=== PATIENT | male | born 1955 | race Caucasian/White ===

== ENCOUNTER → 2017-08-19 | Outpatient (CLI) | payer MEDICAID | LOC: FIMAGING 09:45 | PROVIDERS: ATTEND Internal Medicine | DX: K76.0 Fatty (change of) liver, not elsewhere classified (principal); K80.20 Calculus of gallbladder without cholecystitis without obstruction; B18.2 Chronic viral hepatitis C ==

== ENCOUNTER 2018-01-23 14:47 | Emergency (ER) | payer MEDICAID ==
--- NOTE | 2018-01-23 15:12 | EDPHY ---
H & P Stated Complaint: LLQ pain Time Seen by Provider: 01/23/18 15:11 - Personal History Current Tetanus/Diphtheria Vaccine: Yes Current Tetanus Diphtheria and Acellular Pertussis (TDAP): Yes - Medical/Surgical History Hx Asthma: No Hx Chronic Respiratory Disease: No Hx Diabetes: No Hx Cardiac Disease: No Hx Renal Disease: No Hx Cirrhosis: No Hx Alcoholism: No Hx HIV/AIDS: No Hx Splenectomy or Spleen Trauma: No Other PMH: HTN, HEP C, gout, - Social History Smoking Status: Never smoked Constitutional: Initial Vital Signs Temperature (C) 36.4 C 01/23/18 15:03 Heart Rate 67 01/23/18 15:03 Respiratory Rate 18 01/23/18 15:03 Blood Pressure 170/79 H 01/23/18 15:03 O2 Sat (%) 92 01/23/18 15:03 O2 Delivery Mode Room Air Allergies/Adverse Reactions: No Known Allergies Allergy (Unverified 01/23/18 15:00) Home Medications: Medication Instructions Recorded Ibuprofen [Motrin] 800 mg PO Q8 #20 tab 01/23/18 Indomethacin 01/23/18 Lisinopril-Hctz 10-12.5 mg Tab 01/23/18 Methadone HCl 01/23/18 Medical Decision Making - Diagnostics Imaging Results: Imaging Impressions Abdomen/Pelvis CT 01/23/18 15:25 Impression: 1. Moderate splenomegaly. 2. Moderate constipation. 3. Cholelithiasis visible on comparison ultrasound from [address] 4. Geographic sclerotic abnormality isolated to the left iliac bone. 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 Primary bone neoplasm or bone metastases are less likely given the absence of aggressive features. The lesion is amenable to CT-guided core biopsy. Attention: This examination does not use radiographic contrast, and as such, provides only a limited evaluation of the abdomen, pelvis, and retroperitoneum. If there is further clinical suspicion for pathological conditions, a complete CT evaluation of the abdomen and pelvis utilizing intravenous, oral, and rectal contrast should be considered. Imaging: Discussed imaging studies w/ physically impaired teacher Radiologist ED Course/Re-evaluation: CHIEF COMPLAINT: Left lower quadrant pain HISTORY OF PRESENT ILLNESS: This patient is a 62 year old male complaining of left lower quadrant abdominal pain. This began suddenly this morning while he was shovelling snow. He did not feel any pulled muscle or hernia sensation. The patient noted some left flank pain while driving from home to the emergency department. He denies history of kidney stones. He does have history of asymptomatic cholelithiasis, diagnosed by CT. He denies nausea, fever, vomiting, diarrhea, melena, hematochezia, or other associated symptoms. Of note, the patient is currently undergoing Hep C protocol. REVIEW OF SYSTEMS: A 10 point review of systems was performed and is negative with the exception of the elements mentioned in the history of present illness. PHYSICAL EXAM: HR, BP, O2 Sat, RR. Temp noted General Appearance: Alert, well hydrated, appropriate, and non-toxic appearing. Head: Atraumatic without scalp tenderness or obvious injury Eyes: Pupils equal, round, reactive to light and accommodation, EOMI, no trauma , no injection. Ears: Clear bilaterally, no perforation, normal landmarks Nose: Atraumatic, no rhinorrhea, clear. Throat: There is no erythema or exudates, no lesions, normal tonsils, mucus membranes moist. Neck: Supple, 2+ carotid upstroke, nontender, no lymphadenopathy. Respiratory: No retractions, no distress, no wheezes, and no accessory muscle use. Lungs are clear to auscultation bilaterally. Cardiovascular: Regular rate and rhythm, no murmurs, rubs, or gallops. Bilateral carotid, radial, dorsalis pedis, and posterior tibial pulses intact. Good capillary refill all extremities. Gastrointestinal: Abdomen is soft, nontender, non-distended, no masses, no rebound, no guarding, no peritoneal signs. Musculoskeletal: Normal active ROM of all extremities, atraumatic. Neurological: Alert, appropriate, and interactive. The patient has normal DTRs and non-focal cranial nerves, motor, sensory, and cerebellar exam. Skin: No rashes, good turgor, no nodules on palpation. Past medical history: Hypertension, Gout, Hepatitis C Past surgical history: Noncontributory Family history: Noncontributory Social history: Lives in [place]. . Self-employed. DIFFERENTIAL DIAGNOSIS: The differential diagnosis for the patient's abdominal pain included but was not limited to musculoskeletal pain, appendicitis, cholecystitis, hernias, testicular torsion, gastritis, and urinary tract infection. MEDICAL DECISION [id number] y/o male presents with left lower quadrant abdominal pain. Plan for CT abdomen/pelvis to r/o kidney stones or other acute processes. Plan for labs including CBC, UA, chemistries. Plan to administer 1L IV NS. Laboratory studies largely unremarkable. 16:[address] Hall, radiologist. CT negative for kidney stone. Incidental bone lesion noted. Recommended follow up CT-guided core biopsy. Workup today is unremarkable. The patient's pain is likely musculoskeletal in origin. Results discussed with the patient. He will follow up with his primary care provider regarding this and his incidental iliac lesion. Return precaution discussed. He is comfortable with this plan. - Data Points Laboratory Results: Laboratory Results 01/23/18 15:10 01/23/18 15:10 01/23/18 01/23/18 15:10 15:10 WBC 6.32 10^3/uL 10^3/uL (3.80-9.50) RBC 6.18 10^6/uL 10^6/uL (4.40-6.38) Hgb 18.0 g/dL H g/dL (13.7-17.5) Hct 51.6 % H % (40.0-51.0) MCV 83.5 fL fL (81.5-99.8) MCH 29.1 pg pg (27.9-34.1) MCHC 34.9 g/dL g/dL (32.4-36.7) RDW 13.4 % % (11.5-15.2) Plt Count 76 10^3/uL L 10^3/uL (150-400) MPV 10.8 fL fL (8.7-11.7) Neut % (Auto) 76.1 % H % (39.3-74.2) Lymph % (Auto) 16.3 % % (15.0-45.0) [place] % (Auto) 5.5 % % (4.5-13.0) Eos % (Auto) 1.3 % % (0.6-7.6) Baso % (Auto) 0.3 % % (0.3-1.7) Nucleat RBC Rel Count 0.0 % % (0.0-0.2) Absolute Neuts (auto) 4.81 10^3/uL 10^3/uL (1.70-6.50) Absolute Lymphs (auto) 1.03 10^3/uL 10^3/uL (1.00-3.00) Absolute Monos (auto) 0.35 10^3/uL 10^3/uL (0.30-0.80) Absolute Eos (auto) 0.08 10^3/uL 10^3/uL (0.03-0.40) Absolute Basos (auto) 0.02 10^3/uL 10^3/uL (0.02-0.10) Absolute Nucleated RBC 0.00 10^3/uL 10^3/uL (0-0.01) Immature Gran % 0.5 % % (0.0-1.1) Immature Gran # 0.03 10^3/uL 10^3/uL (0.00-0.10) Sodium 143 mEq/L mEq/L (135-145) Potassium 3.7 mEq/L mEq/L (3.5-5.2) Chloride 102 mEq/L mEq/L (97-110) Carbon Dioxide 26 mEq/l mEq/l (22-31) Anion Gap 15 mEq/L mEq/L (8-16) BUN 21 mg/dL mg/dL (7-23) Creatinine 0.6 mg/dL L mg/dL (0.7-1.3) Estimated GFR > 60 Glucose 132 mg/dL H mg/dL (70-100) Calcium 9.0 mg/dL mg/dL (8.5-10.4) Medications Given: Discontinued Medications Sodium Chloride (Ns) 1,000 mls @ 0 mls/hr IV ONCE ONE PRN Reason: Wide Open Stop: 01/23/18 15:24 Last Admin: 01/23/18 15:26 Dose: 1,000 mls Sodium Chloride (Ns) 1,000 mls @ 0 mls/hr IV ONCE ONE; Wide Open PRN Reason: Protocol Stop: 01/23/18 15:26 Last Admin: 01/23/18 16:13 Dose: 1,000 mls Departure - Departure Disposition: Home, Routine, Self-Care Clinical Impression: Muscle strain Condition: Good Instructions: Muscle Strain (ED) Additional Instructions: 1. Take 600mg ibuprofen every 6-8 hours as needed for pain. 2. Follow up with your primary care provider for further evaluation for symptoms unresolved. 3. Return to the emergency department for worsening pain, uncontrollable vomiting, fever, weakness or numbness, or further concerns. 4. An incidental abnormality in your left iliac bone was noted on your CT. Please follow up with your primary care provider regarding this. It is recommended that you follow up for a CT-guided core biopsy. Referrals: Jovon Kaur MD [Primary Care Provider] - As per Instructions Prescriptions: Ibuprofen [Motrin] 800 mg PO Q8 #20 tab Report Scribed for: Edgardo Beltre Report Scribed by: Gema Pan Date of Report: 01/23/18 Time of Report: 15:20
[2018-01-23] MEDS ORDERED: NS 1,000 ML IV ONE ×2 (15:23→15:25)
[2018-01-23 15:46] LABS: PLATELET COUNT 76 10^3/uL (150-400)
[2018-01-23 16:26] VITALS: BP 144/78; PULSE 81; RESP 16; TEMP 98.6; O2SAT 94
== END 2018-01-23 16:43 | disposition home or self-care (01) ==
DX: S39.011A Strain of muscle, fascia and tendon of abdomen, initial encounter (principal); I10 Essential (primary) hypertension; E86.9 Volume depletion, unspecified; X58.XXXA Exposure to other specified factors, initial encounter

== ENCOUNTER → 2018-08-23 | Outpatient (CLI) | payer MEDICAID | LOC: FIMAGING 09:29 | PROVIDERS: ATTEND Internal Medicine | DX: K80.20 Calculus of gallbladder without cholecystitis without obstruction (principal); K76.0 Fatty (change of) liver, not elsewhere classified ==

== ENCOUNTER → 2019-04-12 | Outpatient (CLI) | payer MEDICAID | LOC: FIMAGING 09:15 ==